=== PATIENT | male | born 1950 | race Caucasian/White ===

== ENCOUNTER → 2024-03-12 | Outpatient (CLI) | payer BC, SELFPAY ==
--- NOTE | 2024-03-12 11:21 | ECHOD_ITS ---
Reason For Study: SICK SINUS SYNDROME Procedure This was a 2D Doppler, Color Flow transthoracic echocardiogram. Exam performed in department. Left Ventricle Normal LV size. Mild assymetric septal hypertrophy. The estimated ejection fraction is 60 %. Normal diastology for age. No regional wall motion abnormalities noted. Right Ventricle Normal RV size. Normal systolic function. Atria There is mild biatrial dilatation. Mitral Valve The mitral valve is structurally normal. No prolapse or stenosis seen. Mild (1+) mitral valve insufficiency. Tricuspid Valve Normal tricuspid valve. Mild (1+) tricuspid valve insufficiency. Pulmonary artery systolic pressure is 29 mmHg. Aortic Valve Trisinus/trileaflet aortic valve. Mild (1+) aortic valve insufficiency. Pulmonic Valve Normal pulmonic valve. Mild (1+) pulmonic valve insufficiency. Great Vessels Normal aortic root. Pericardium/Pleural No pericardial effusion. MMode/2D Measurements & Calculations LVIDd: 4.4 cm IVSd: 1.2 cm LVOT diam: 2.0 cm LVIDs: 2.7 cm LVPWd: 0.89 cm LVOT area: 3.2 cm2 RVDd: 3.5 cm FS: 37.7 % Ao root diam: 3.1 cm LAV(MOD-bp): 66.5 ml LVAd ap4: 20.4 cm2 LAV(MOD-bp) Indexed: 34.9 ml/m2 LVLd ap4: 6.8 cm LAV(MOD-sp2): 74.0 ml EDV(MOD-sp4): 51.2 ml LAV(MOD-sp4): 59.7 ml EDV(sp4-el): 52.2 ml LVAs ap4: 11.7 cm2 LVLs ap4: 5.2 cm ESV(MOD-sp4): 22.4 ml ESV(sp4-el): 22.0 ml EF(MOD-sp4): 56.3 % EF(sp4-el): 57.9 % LVAd ap2: 18.7 cm2 SV(MOD-sp4): 28.8 ml SV(MOD-sp2): 27.9 ml LVLd ap2: 6.6 cm EDV(MOD-sp2): 46.9 ml EDV(sp2-el): 45.1 ml LVAs ap2: 10.3 cm2 LVLs ap2: 5.1 cm ESV(MOD-sp2): 19.0 ml ESV(sp2-el): 17.5 ml EF(MOD-sp2): 59.5 % SV(sp4-el): 30.2 ml LA dimension(2D): 3.4 cm LA A4 area: 20.1 cm2 RA A4 area: 19.5 cm2 TAPSE: 1.6 cm Time Measurements MV dec time: 0.34 sec Doppler Measurements & Calculations MV E max mitchell: 51.7 cm/sec Lat Peak E' Mitchell: 12.6 cm/sec Med Peak E' Mitchell: 8.5 cm/sec MV A max mitchell: 31.3 cm/sec E/E' lat: 4.1 E/E' med: 6.1 MV E/A: 1.7 Ao V2 max: 96.8 cm/sec LV V1 max: 68.1 cm/sec MV dec slope: 158.7 cm/sec2 Ao max P.7 mmHg LV V1 max P.9 mmHg Ao V2 mean: 65.9 cm/sec LV V1 mean P.1 mmHg Ao mean P.0 mmHg LV V1 mean: 49.8 cm/sec Ao V2 VTI: 21.1 cm LV V1 VTI: 12.5 cm AV (velocity ratio): 0.59 CLINT(I,D): 1.9 cm2 CLINT(V,D): 2.3 cm2 SV(LVOT): 40.3 ml PA V2 max: 82.9 cm/sec PI end-d mitchell: 97.0 cm/sec PA max PG (full): 1.5 mmHg TR max mitchell: 256.9 cm/sec TR max P.4 mmHg ECHO/Echo Complete Interpretation Summary The estimated ejection fraction is 60 %. Mild assymetric septal hypertrophy. Mild (1+) mitral valve insufficiency. Mild (1+) aortic valve insufficiency. There is mild biatrial dilatation. Incidental finding of hepatic cyst. Consider ultrasound liver for further evalu ation. Ordering Physician: Ivan Wesley Referring Physician: Ivan Wesley MD Performed By: Jina Samano RDCS
--- NOTE | 2024-03-12 13:44 | STRESSREP ---
Stress Test Report Date: 03/12/2024 Procedure: Exercise tolerance test Indications: Arrhythmia Consent: Per the patient Procedure: The patient exercised on a Andriy protocol for 6 minutes and 41 seconds achieving a peak heart rate of 126 bpm (86% predicted maximal heart rate) with a peak blood pressure 190/70 mmHg and a peak MET capacity of approximately 9.1 MET's. The baseline ECG demonstrated sinus bradycardia with marked sinus arrhythmia and PACs. The peak exercise ECG demonstrated sinus tachycardia with no ischemic changes. There was normal chronotropic response to exercise with sinus tachycardia. The functional capacity was considered good for age. The patient had no complaints of chest discomfort during exercise or recovery. The examination was discontinued secondary to target heart rate being achieved. Impression: 1. Technically adequate (percent predicted maximal heart rate greater than 85%) exercise tolerance test 2. Peak exercise ECG with no ischemic changes 3. Normal chronotropic response to exercise with no heart blocks noted This note was generated with [employer] software. It may contain incorrect words, spelling, and punctuation that were not noted in checking the note before signing.
== END | disposition home or self-care (01) ==
PROVIDERS: PCP Family Medicine; Referring Provider Internal Medicine Cardiovascular Disease; Visit Provider Internal Medicine Cardiovascular Disease
DX: I49.5 Sick sinus syndrome (principal); R42 Dizziness and giddiness; R00.1 Bradycardia, unspecified; E78.5 Hyperlipidemia, unspecified; I77.9 Disorder of arteries and arterioles, unspecified
CPT/HCPCS: 93017; 93306